=== PATIENT | male | born 1945 | race Caucasian/White ===

== ENCOUNTER 2020-12-08 12:14 | Inpatient (IN) | payer MEDICARE ==
[~2020-12-08] VITALS: Ht 180.3 cm; Wt 123.8 kg
[2020-12-08] MEDS ORDERED: AMIODARONE 900MG 500 ML IV STA (13:03)
[2020-12-08] MEDS ORDERED: AMIODARONE HCL 150MG 100 ML IV STA (13:03)
[2020-12-08 13:05] LABS: BASOPHILS % 0.1 % (0.0-1.0); EOSINOPHILS # (AUTO) 0.2 (0.0-0.4); EOSINOPHILS % 2.5 % (0.0-6.0); HEMATOCRIT 37.1 % (38.2-49.6); HEMOGLOBIN 11.4 g/dL (14.0-18.0); LYMPHOCYTES # (AUTO) 0.7 (1.0-3.2); LYMPHOCYTES % 10.3 % (18.0-39.1); MEAN CORPUSCULAR HEMOGLOBIN 29.5 pg (28-32); MEAN CORPUSCULAR HGB CONC 30.7 g/dL (31-35); MEAN CORPUSCULAR VOLUME 96.1 fL (81-99); MONOCYTES # (AUTO) 0.8 (0.2-0.8); MONOCYTES % 11.6 % (4.4-11.3); NEUTROPHILS # (AUTO) 5.4 (2.1-6.9); NEUTROPHILS % 74.9 % (38.7-80.0); PLATELET COUNT 100 x10e3/uL (140-360); RED BLOOD COUNT 3.86 x10e6/uL (4.3-5.7); RED CELL DISTRIBUTION WIDTH 14.1 % (11.7-14.4)
[2020-12-08 13:09] LABS: INR 0.99; PROTHROMBIN TIME 13.3 seconds (11.9-14.5)
[2020-12-08 13:10] LABS: PARTIAL THROMBOPLASTIN TIME 31.8 seconds (23.8-35.5)
[2020-12-08 13:19] LABS: ALBUMIN 3.5 g/dL (3.5-5.0); ALBUMIN/GLOBULIN RATIO 0.8 (0.8-2.0); CALCIUM 8.7 mg/dL (8.4-10.2); CREATININE, SERUM 2.05 mg/dL (0.72-1.25)
[2020-12-08 13:25] LABS: CREATINE KINASE MB 1.4 ng/mL (0-5.0)
[2020-12-08] MEDS ORDERED: AMIODARONE 900MG 500 ML IV SCH ×2 (13:30→19:30)
[2020-12-08 15:07] LABS: COLOR,URINE YELLOW (YELLOW)
[2020-12-08 15:08] LABS: CLARITY,URINE CLEAR (CLEAR)
[2020-12-08 15:09] LABS: LEUKOCYTE ESTERASE ,URINE NEGATIVE (NEGATIVE); NITRITE,URINE NEGATIVE (NEGATIVE)
[2020-12-08 15:10] LABS: PROTEIN,URINE DIPSTICK NEGATIVE (NEGATIVE)
[2020-12-08 15:11] LABS: KETONES,URINE NEGATIVE (NEGATIVE); URINE UROBILINOGEN 0.2 mg/dL (0.2 - 1)
[2020-12-08 15:12] LABS: WBC,URINE (MAN) 0-5 /HPF (0-5)
[2020-12-08 15:13] LABS: BACTERIA,URINE RARE /HPF
[2020-12-08] MEDS ORDERED: FUROSEMIDE INJ 10 MG/ML 4 ML VIAL IV ONE (15:15)
[2020-12-08] MEDS ORDERED: HYDROCODONE/APAP 10MG-325MG TAB PO ONE (16:30)
[2020-12-08] MEDS ORDERED: PROMETHAZINE 12.5MG/ NACL 0.9% 12.5 MG/50 ML BAG IV ONE (16:30)
[2020-12-08] MEDS ORDERED: HYDROMORPHONE 1MG/1ML INJ IV STA (16:41)
[2020-12-08 23:10] VITALS: BP 111/63
[2020-12-09] VITALS (11 sets, daily range): BP systolic 98–141; BP diastolic 59–75
[2020-12-09] MEDS ORDERED: ACETAMINOPHEN 325 MG TAB PO PRN (01:15)
[2020-12-09 05:49] LABS: BASOPHILS % 0.3 % (0.0-1.0); EOSINOPHILS # (AUTO) 0.2 (0.0-0.4); EOSINOPHILS % 2.6 % (0.0-6.0); HEMATOCRIT 34.3 % (38.2-49.6); HEMOGLOBIN 10.9 g/dL (14.0-18.0); LYMPHOCYTES % 13.9 % (18.0-39.1); MEAN CORPUSCULAR HEMOGLOBIN 29.9 pg (28-32); MEAN CORPUSCULAR HGB CONC 31.8 g/dL (31-35); MEAN CORPUSCULAR VOLUME 94.2 fL (81-99); MONOCYTES # (AUTO) 0.9 (0.2-0.8); MONOCYTES % 12.3 % (4.4-11.3); NEUTROPHILS # (AUTO) 4.9 (2.1-6.9); NEUTROPHILS % 70.5 % (38.7-80.0); PLATELET COUNT 100 x10e3/uL (140-360); RED BLOOD COUNT 3.64 x10e6/uL (4.3-5.7)
[2020-12-09 06:41] LABS: ANION GAP 17.9 mmol/L (8-16); CALCIUM 8.8 mg/dL (8.4-10.2); CHOL/HDL RATIO 3.6 (3.9-4.7); CREATININE, SERUM 1.94 mg/dL (0.72-1.25); POTASSIUM 3.9 mmol/L (3.5-5.1)
[2020-12-09 06:42] LABS: % IRON SATURATION 14 % (15-50); IRON 45 ug/dL (65-175); TOTAL IRON BINDING CAPACITY 315 ug/dL (261-478); TRANSFERRIN 225 mg/dL (174-364)
[2020-12-09] MEDS ORDERED: FEROSUL325 MG PO (09:08)
[2020-12-09] MEDS ORDERED: LISINOPRIL10 MG PO (09:08)
[2020-12-09] MEDS ORDERED: LEVOTHYROXINE50 MCG PO (09:09)
[2020-12-09] MEDS ORDERED: AMIODARONE HCL100 MG PO (09:09)
[2020-12-09] MEDS ORDERED: FUROSEMIDE40 MG PO (09:09)
[2020-12-09] MEDS ORDERED: NEURONTIN400 MG PO (09:10)
[2020-12-09] MEDS ORDERED: PROMETHAZINE HC25 M1 PO (09:12)
[2020-12-09] MEDS ORDERED: ULTRAM50 MG PO (09:13)
[2020-12-09 11:30] LABS: CREATINE KINASE MB 1.1 ng/mL (0-5.0)
[2020-12-09] MEDS: APIXAB 2.5 MG TABLET PO SCH (17:00)
[2020-12-09] MEDS: ASPIRIN 81 MG ENTERIC COATED PO SCH (17:21)
[2020-12-09] MEDS: METOPROLOL SUCCINATE 25 MG TAB XL PO SCH (17:21)
[2020-12-09] MEDS: FERROUS SULFATE 325 MG TAB PO SCH (17:21)
[2020-12-09] MEDS: AMIODARONE HCL 200 MG TAB PO SCH (20:58)
[2020-12-09] MEDS ORDERED: TRAMADOL HCL 50 MG TAB PO PRN (21:00)
[2020-12-09] MEDS: FUROSEMIDE INJ 10 MG/ML 4 ML VIAL IV SCH (21:08)
[2020-12-09] MEDS ORDERED: PROMETHAZINE HCL 25 MG TAB PO PRN (21:30)
[2020-12-09] MEDS ORDERED: MELATONIN 5 MG TABLET PO PRN (23:30)
[2020-12-10] VITALS: BP 127/66
[2020-12-10] MEDS ORDERED: PROMETHAZINE HCL 25 MG TAB PO SCH
[2020-12-10 04:00] VITALS: BP 105/53
[2020-12-10 05:53] LABS: ANION GAP 13.8 mmol/L (8-16); CALCIUM 8.7 mg/dL (8.4-10.2); CREATININE, SERUM 1.83 mg/dL (0.72-1.25); POTASSIUM 3.8 mmol/L (3.5-5.1)
[2020-12-10 08:05] VITALS: BP 122/73
[2020-12-10] MEDS: FUROSEMIDE INJ 10 MG/ML 4 ML VIAL IV SCH (08:38)
[2020-12-10] MEDS: FERROUS SULFATE 325 MG TAB PO SCH (08:38)
[2020-12-10] MEDS: ASPIRIN 81 MG ENTERIC COATED PO SCH (08:38)
[2020-12-10] MEDS: AMIODARONE HCL 200 MG TAB PO SCH (08:38)
[2020-12-10] MEDS: APIXAB 2.5 MG TABLET PO SCH (08:38)
[2020-12-10] MEDS: METOPROLOL SUCCINATE 25 MG TAB XL PO SCH (08:41)
[2020-12-10] MEDS ORDERED: LISINOPRIL 10 MG TAB PO SCH (09:00)
[2020-12-10] MEDS ORDERED: LEVOTHYROXINE SODIUM 50 MCG TAB PO SCH (09:00)
[2020-12-10] MEDS ORDERED: GABAPENTIN 400 MG CAP PO SCH (09:00)
[2020-12-10] MEDS ORDERED: AMIODARONE HCL 200 MG TAB PO SCH (09:00)
[2020-12-10] MEDS ORDERED: SODIUM CHLORIDE 0.9% 250ML 250 ML ONE (10:57)
[2020-12-10] MEDS ORDERED: IRON SUCROSE 100 MG in SODIUM CHLORIDE 0.9% 100 ML 100 ML IV SCH (11:00)
== END 2020-12-10 12:52 | disposition home or self-care (01) | DRG 308 ==
LOC: ER 12:27 → ERHOLD 17:40 → IMCU 23:22
PROVIDERS: ADMIT Internal Medicine; ATTEND Internal Medicine
DX: I48.91 Unspecified atrial fibrillation (principal); I50.23 Acute on chronic systolic (congestive) heart failure; N17.9 Acute kidney failure, unspecified; I13.0 Hypertensive heart and chronic kidney disease with heart failure and stage 1 through stage 4 chronic kidney disease, or unspecified chronic kidney disease; D64.9 Anemia, unspecified; E03.9 Hypothyroidism, unspecified; Z87.442 Personal history of urinary calculi; Z95.2 Presence of prosthetic heart valve; Z85.05 Personal history of malignant neoplasm of liver; Z88.5 Allergy status to narcotic agent; Z88.8 Allergy status to other drugs, medicaments and biological substances; N18.9 Chronic kidney disease, unspecified; D50.9 Iron deficiency anemia, unspecified; E87.70 Fluid overload, unspecified
CPT/HCPCS: 36415; 71045; 76770; 80048; 80053; 80061; 81001; 82550; 82553; 83540; 83880; 84100; 84466; 84484; 85025; 85610; 85730; 93005; 99284; J1170; J1756; J1940; J2550; J7050; U0002